=== PATIENT | male | born 2000 | race Caucasian/White ===

== ENCOUNTER 2019-03-21 19:38 | Emergency (ER) | payer SELFPAY ==
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
--- NOTE | 2019-03-21 20:31 | CR ---
Indication: Injury and pain Technique: Left elbow 3 views Comparison: None Findings: Bones: Alignment is normal. No fractures or bone lesions. Joint spaces: Unremarkable. No sign of joint effusion. Soft tissues: Unremarkable. Impression: No sign of acute injury. Dictated by Sang Perez MD @ Mar 21 2019 8:28PM Signed by Dr. Sang Perez @ Mar 21 2019 8:30PM
== END 2019-03-21 20:45 | disposition home or self-care (01) ==
LOC: MW.ED 19:38
DX: S50.02XA Contusion of left elbow, initial encounter (principal); V29.9XXA Motorcycle rider (driver) (passenger) injured in unspecified traffic accident, initial encounter
CPT/HCPCS: 73080-26-LT; 73080-LT; 99282; 99283-25